=== PATIENT | female | born 1975 | race Two or more races ===

== ENCOUNTER 2023-08-15 22:50 | Emergency (ER) | payer OTHER ==
[~2023-08-15] VITALS: Ht 170.2 cm; Wt 56.7 kg
[2023-08-15] MEDS ORDERED: SYNTHROID125 MCG PO (23:16)
[2023-08-16 01:08] LABS: HEMATOCRIT 36.7 % (36.0-45.00); HEMOGLOBIN 12.2 g/dL (12.0-15.00); MEAN CELL VOLUME 90.2 fL (80.00-100.00); MEAN CORPUSCULAR HEMOGLOBIN 30.1 pg (27.00-32.0); MEAN CORPUSCULAR HGB CONC 33.4 g/dl (32.0-36.0); PLATELET COUNT 297 K/uL (150-450); RED BLOOD COUNT 4.06 M/uL (4.00-6.00); RED CELL DISTRIBUTION WIDTH 13.8 % (11.5-14.5)
[2023-08-16 02:16] LABS: ALBUMIN 4.3 gm/dL (3.4-5.0); BILIRUBIN TOTAL 0.2 mg/dL (0.3-1.2); CALCIUM 9.9 mg/dL (8.5-10.1); CREATININE SERUM 0.75 mg/dL (0.55-1.02); GFR 81.79; GLOBULINA 3.7 G/DL (2.4-3.5); POTASSIUM 4.56 mEq/L (3.5-5.1)
[2023-08-16 02:17] LABS: TSH 0.18 uIU/mL (0.358-3.74)
== END 2023-08-16 05:33 | disposition left against medical advice (07) ==
LOC: ER 22:51
PROVIDERS: General Practice
DX: R00.2 Palpitations (principal)